=== PATIENT | male | born 1965 | race Two or more races ===

== ENCOUNTER 2016-06-30 16:01 | Emergency (ER) | payer OTHER ==
[~2016-06-30] VITALS: Ht 172.7 cm; Wt 76.2 kg
--- NOTE | 2016-06-30 16:45 | Emergency Room Report ---
History of Present Illness General Chief Complaint: Overdose Source: EMS ([facility]) Source: Medical Record (Cj Henriquez M.D.) Present Illness HPI The patient is a 51-year-old male with history of depression, hernia, and bipolar disorder presenting for suicidal ideation. Patient states he ingested about 30 200mg tablets of seroquel and intended to hurt himself in doing so. The patient had thoughts of ending his life due to familial stress but then had second thoughts and called paramedics. The patient states that he has tried to end his life before with overdosing on various medications and also cutting. The patient states that he has not seen his psychiatrist in over a year. The patient denies any other symptoms including nausea, vomiting, fever, chills , chest pain, shortness of breath, fatigue, altered level of consciousness ([facility] [email or web address].Zee) HPI Note reviewed. (Cj Henriquez M.D.) Allergies: Coded Allergies: No Known Allergies (Unverified , 06/30/16) Patient History Past Medical History: see triage record, psych hx Pertinent Family History: none Reviewed Nursing Documentation: PMH: Agreed, PSxH: Agreed ([facility]) Nursing Documentation-PMH Past Medical History: No History, Except For ([facility] [email or web address].Zee) Review of Systems All Other Systems: negative except mentioned in HPI ([facility] WALTERS P.A.) Physical Exam Vital Signs Date Time Temp Pulse Resp B/P Pulse Ox O2 Delivery O2 Flow Rate FiO2 06/30/16 16:01 98.6 84 16 134/84 99 Room Air Sp02 EP Interpretation: reviewed, normal General Appearance: no apparent distress, alert, GCS 15, non-toxic Head: normocephalic, atraumatic Eyes: bilateral eye PERRL, bilateral eye normal inspection ENT: hearing grossly normal, normal pharynx, no angioedema, normal voice Neck: full range of motion, supple/symm/no masses Respiratory: chest non-tender, lungs clear, normal breath sounds, no wheezing, speaking full sentences Cardiovascular #1: regular rate, rhythm, no edema Gastrointestinal: normal bowel sounds, non tender, soft, non-distended, no guarding, no rebound Genitourinary: normal inspection, no CVA tenderness Musculoskeletal: back normal, gait/station normal, normal range of motion, non- tender Neurologic: alert, oriented x3, responsive, motor strength/tone normal, sensory intact, speech normal Psychiatric: memory normal, mood/affect normal, other - SI Suicide Risk Assessment: Suicidal Ideation: Yes Had intent to initiate attempt: Yes Pt's plan for suicide attempt: Yes Has means to complete attempt: Yes Skin: normal color, no rash, warm/dry, well hydrated Lymphatic: no adenopathy ([facility] W[facility]TER[facility] PNiniANini) Last Vital Signs Date Time Temp Pulse Resp B/P Pulse Ox O2 Delivery O2 Flow Rate FiO2 07/04/16 17:37 97.6 84 20 138/84 96 Room Air Sp02 EP Interpretation: reviewed, normal General Appearance: well appearing, no apparent distress, GCS 15 Head: normocephalic Eyes: bilateral eye PERRL, bilateral eye normal inspection ENT: moist mucus membranes Neck: supple Respiratory: lungs clear, normal breath sounds Cardiovascular #1: regular rate, rhythm Cardiovascular #2: 2+ radial (R) Gastrointestinal: normal inspection, normal bowel sounds, non tender, no mass, non-distended Musculoskeletal: back normal, gait/station normal, normal range of motion Neurologic: alert, oriented x3 Psychiatric: no delusions, other - still with suicidal ideation Suicide Risk Assessment: Suicidal Ideation: Yes Had intent to initiate attempt: Yes Pt's plan for suicide attempt: Yes Has means to complete attempt: Yes Skin: normal inspection, warm/dry, other - tattoos (Cj Henriquez M.D.) Medical Decision Making PA Attestation Dr. Ceron is my supervising physician. Patient management was discussed with my supervising physician ([facility] W[facility]TER[facility] PNiniANini) Diagnostic Impression: Primary Impression: Suicidal ideation ER Course The patient is a 51-year-old male with history of depression, hernia, and bipolar disorder presenting for suicidal ideation. Differential diagnoses considered but not limited to suicidal ideation, homicidal ideation, depression, medication overdose, drug abuse PE: Vitals are all within normal limits. No apparent distress. Patient is calm and talking with other patients. A&Ox3. PERRL Regular rate and rhythm Lungs clear to auscultation bilaterally Abdomen is soft and nontender Poison control was contacted and states patient likely did not ingest the stated amount of sequel as he would be lethargic, hypotensive, and tachycardic by this time. The patient was accompanied by paramedics and [employer] who has placed patient on a 5150 Labs are all unremarkable. Patient is stable and will be transferred to psychiatric facility. Labs Test 06/30/16 17:27 06/30/16 17:45 07/04/16 14:20 White Blood Count 7.6 K/UL (4.8-10.8) Red Blood Count 5.13 M/UL (4.70-6.10) Hemoglobin 16.0 G/DL (14.2-18.0) Hematocrit 47.5 % (42.0-52.0) Mean Corpuscular Volume 93 FL (80-99) Mean Corpuscular Hemoglobin 31.2 PG (27.0-31.0) Mean Corpuscular Hemoglobin Concent 33.7 G/DL (32.0-36.0) Red Cell Distribution Width 11.9 % (11.6-14.8) Platelet Count 229 K/UL (150-450) Mean Platelet Volume 8.0 FL (6.5-10.1) Neutrophils (%) (Auto) 73.2 % (45.0-75.0) Lymphocytes (%) (Auto) 19.6 % (20.0-45.0) Monocytes (%) (Auto) 4.8 % (1.0-10.0) Eosinophils (%) (Auto) 1.8 % (0.0-3.0) Basophils (%) (Auto) 0.6 % (0.0-2.0) Sodium Level 138 mEQ/L (135-145) Potassium Level 4.7 mEQ/L (3.4-4.9) Chloride Level 95 mEQ/L (98-107) Carbon Dioxide Level 27 mEQ/L (20-30) Anion Gap 16 (5-15) Blood Urea Nitrogen 13 mg/dL (7-23) Creatinine 0.8 mg/dL (0.7-1.2) Estimat Glomerular Filtration Rate > 60 mL/min (>60) Glucose Level 85 mg/dL (74-106) Calcium Level 9.4 mg/dL (8.6-10.2) Total Bilirubin < 0.2 mg/dL (0.0-1.2) Aspartate Amino Transf (AST/SGOT) 28 U/L (5-40) Alanine Aminotransferase (ALT/SGPT) 26 U/L (3-41) Alkaline Phosphatase 83 U/L (40-129) Total Protein 7.9 g/dL (6.6-8.7) Albumin 4.6 g/dL (3.5-5.2) Globulin 3.3 g/dL Albumin/Globulin Ratio 1.3 (1.0-2.7) Salicylates Level < 1 mg/dL (10-30) Acetaminophen Level < 10 ug/mL (10-30) Serum Alcohol < 10 mg/dL Urine Opiates Screen Negative (NEGATIVE) Urine Barbiturates Screen Negative (NEGATIVE) Phencyclidine (PCP) Screen Negative (NEGATIVE) Urine Amphetamines Screen Negative (NEGATIVE) Urine Benzodiazepines Screen Negative (NEGATIVE) Urine Cocaine Screen Negative (NEGATIVE) Urine Marijuana (THC) Screen Negative (NEGATIVE) Phenytoin (Dilantin) Level 11.6 ug/mL (10-20) Lab Results Impression CBC, CMP unremarkable. Urine drug screen is negative Negative blood alcohol ([email or web address].Zee) ER Course Patient under observation for several days. See note from Mr. Walters. Patient given meds (dilantin and respirdal). Accepted at [facility] in [place]. Patient calm and feeling better after meds. Still c/o suicidal ideation. Stable for transfer. Labs as above. Dilantin: 11.6 (Cj Henriquez M.D.) Last Vital Signs Date Time Temp Pulse Resp B/P Pulse Ox O2 Delivery O2 Flow Rate FiO2 06/30/16 16:01 98.6 84 16 134/84 99 Room Air Status: improved ([facility] AWLTERS) Last Vital Signs Date Time Temp Pulse Resp B/P Pulse Ox O2 Delivery O2 Flow Rate FiO2 07/04/16 17:37 97.6 84 20 138/84 96 Room Air Status: improved (Cj Henriquez M.D.) Disposition: XFER TO PSYCH HOSP/UNIT - [facility] Condition: Stable Referrals: [facility],REFERR[facility] (PCP) [facility] Jun 30, 2016 16:44 Cj Henriquez M.D. Jul 04, 2016 16:23
[2016-06-30 17:53] LABS: BASOPHILS % (AUTO) 0.6 % (0.0-2.0); EOSINOPHILS % (AUTO) 1.8 % (0.0-3.0); LYMPHOCYTES % (AUTO) 19.6 % (20.0-45.0); MEAN CORPUSCULAR HEMOGLOBIN 31.2 PG (27.0-31.0); MEAN CORPUSCULAR HGB CONC 33.7 G/DL (32.0-36.0); MEAN CORPUSCULAR VOLUME 93 FL (80-99); MONOCYTES % (AUTO) 4.8 % (1.0-10.0); NEUTROPHILS % (AUTO) 73.2 % (45.0-75.0); PLATELET COUNT 229 K/UL (150-450); RED BLOOD COUNT 5.13 M/UL (4.70-6.10); RED CELL DISTRIBUTION WIDTH 11.9 % (11.6-14.8); WHITE BLOOD COUNT 7.6 K/UL (4.8-10.8)
[2016-06-30 18:27] LABS: ACETAMINOPHEN < 10 ug/mL (10-30); ALANINE AMINOTRANSFERASE 26 U/L (3-41); ALBUMIN/GLOBULIN RATIO 1.3 (1.0-2.7); ALCOHOL < 10 mg/dL; ANION GAP 16 (5-15); ASPARTATE AMINO TRANSFERASE 28 U/L (5-40); CALCIUM 9.4 mg/dL (8.6-10.2); CARBON DIOXIDE 27 mEQ/L (20-30); CHLORIDE 95 mEQ/L (98-107); CREATININE 0.8 mg/dL (0.7-1.2); GLOMERULAR FILTRATION RATE > 60 mL/min (>60); HEMOLYSIS 34; POTASSIUM 4.7 mEQ/L (3.4-4.9); SODIUM 138 mEQ/L (135-145); TOTAL PROTEIN 7.9 g/dL (6.6-8.7)
[2016-06-30 18:48] VITALS: BP 126/75
[2016-06-30 21:31] VITALS: BP 127/63
[2016-06-30 23:15] VITALS: BP 116/68
[2016-07-01] VITALS (8 sets, daily range): BP systolic 118–134; BP diastolic 68–81
[2016-07-02] VITALS (8 sets, daily range): BP systolic 119–139; BP diastolic 69–84
[2016-07-03 02:51] VITALS: BP 134/77
[2016-07-03] MEDS ORDERED: QUETIAPINE FUM200 MG ORAL (11:06)
[2016-07-03] MEDS ORDERED: DILANTIN100 MG ORAL (11:06)
[2016-07-03] MEDS ORDERED: LISINOPRIL20 MG ORAL (11:06)
[2016-07-03] MEDS ORDERED: RISPERDAL2 MG ORAL ×2 (11:06)
[2016-07-03] MEDS ORDERED: Phenytoin 100mg cap ORAL ONE (11:15)
[2016-07-03 11:26] VITALS: BP 136/81
[2016-07-03 15:11] VITALS: BP 144/81
[2016-07-03 19:30] VITALS: BP 152/86
[2016-07-03 23:32] VITALS: BP 148/83
[2016-07-04 03:39] VITALS: BP 135/81
[2016-07-04] MEDS ORDERED: Phenytoin 100mg cap ORAL ONE (11:30)
[2016-07-04 12:00] VITALS: BP 134/79
[2016-07-04 16:00] VITALS: BP 138/84
[2016-07-04 17:37] VITALS: BP 138/84
== END 2016-07-04 17:56 ==
LOC: EDBD 16:01 → EMR 16:10
DX: R45.851 Suicidal ideations (principal); F31.9 Bipolar disorder, unspecified
CPT/HCPCS: 36415; 80053; 80185; 80300; 80329; 85025